=== PATIENT | female | born 1985 | race African-American/Black ===

== ENCOUNTER 2018-01-27 10:50 | Emergency (ER) | payer SELFPAY ==
[~2018-01-27] VITALS: Ht 165.1 cm; Wt 108.0 kg
[2018-01-27 11:08] VITALS: BP 168/89
[2018-01-27] MEDS ORDERED: LORAZEPAM 0.5MG TABLET PO ONE (12:15)
== END 2018-01-27 12:39 | disposition home or self-care (01) ==
LOC: ER 11:54
DX: Z56.6 Other physical and mental strain related to work (principal); F43.0 Acute stress reaction; F51.02 Adjustment insomnia; G47.8 Other sleep disorders
CPT/HCPCS: 99284